=== PATIENT | male | born 1950 | race Hispanic/Latino ===

== ENCOUNTER 2018-12-19 11:53 | Emergency (ER) | payer MEDICARE, OTHER ==
[~2018-12-19] VITALS: Ht 162.6 cm; Wt 86.2 kg
[2018-12-19] MEDS ORDERED: TETANUS/DIPHTHERIA TOX ADULT 0.5 ML SYR ONE (12:26)
--- NOTE | 2018-12-19 12:28 | NUR ---
RIGHT FOREARM REDNESS MARKED WITH BLACK MARKER PER NAN Jacobs
[2018-12-19] MEDS ORDERED: LIDOCAINE HCL 1% LOCAL INJ 20 ML VIAL INJ ONE (12:30)
[2018-12-19] MEDS ORDERED: TETANUS/DIPHTHERIA TOX ADULT 0.5 ML SYR IM ONE (12:30)
== END 2018-12-19 12:42 | disposition home or self-care (01) ==
LOC: ER 11:53
DX: L02.413 Cutaneous abscess of right upper limb (principal)
CPT/HCPCS: 10060; 90471; 90714; 99283

== ENCOUNTER 2019-06-13 21:16 | Inpatient (IN) | payer MEDICARE, OTHER ==
[~2019-06-13] VITALS: Ht 162.6 cm; Wt 86.2 kg
--- OUTSIDE RECORDS SUMMARY | 2019-06-13 21:19 | XMS REPORT ---
Author Author [facility] Organization [facility] Address Unknown Phone Unavailable Care Team Providers Care Management Sme Name Role Phone NO, PCP PP Unavailable Payers Payer Name Policy Type Policy Number Effective Date Expiration D ate [employer] [facility] [id number] Problems This patient has no known problems. Allergies, Adverse Reactions, Alerts This patient has no known allergies or adverse reactions. Medications This patient has no known medications. Encounters Start Date/Time End Date/Time Encounter Type Admission Type [facility] Care Department Encounter ID 2018-12-19 11:53:00 2018-12-19 12:42:00 Departed Emergency Room [facility] [id number]
[2019-06-13] MEDS ORDERED: ACETAMINOPHEN 325 MG TAB PO ONE (21:45)
[2019-06-13] MEDS ORDERED: CEFEPIME 2 GM/NS 0.9% 100 ML 100 ML IV SCH (21:45)
[2019-06-13] MEDS ORDERED: SODIUM CHLORIDE 0.9% 1000ML 1,000 ML IV ONE ×2 (22:00→23:30)
[2019-06-13 22:03] LABS: BASOPHILS % 0.4 % (0.0-1.0); EOSINOPHILS % 0.2 % (0.0-6.0); HEMATOCRIT 43.9 % (38.2-49.6); HEMOGLOBIN 15.4 g/dL (14.0-18.0); LYMPHOCYTES # (AUTO) 0.7 (1.0-3.2); LYMPHOCYTES % 7.4 % (18.0-39.1); MEAN CORPUSCULAR HEMOGLOBIN 29.2 pg (28-32); MEAN CORPUSCULAR HGB CONC 35.1 g/dL (31-35); MEAN CORPUSCULAR VOLUME 83.3 fL (81-99); MONOCYTES # (AUTO) 0.4 (0.2-0.8); MONOCYTES % 4.3 % (4.4-11.3); NEUTROPHILS # (AUTO) 8.7 (2.1-6.9); NEUTROPHILS % 86.8 % (38.7-80.0); PLATELET COUNT 85 x10e3/uL (140-360); RED BLOOD COUNT 5.27 x10e6/uL (4.3-5.7); RED CELL DISTRIBUTION WIDTH 12.4 % (11.7-14.4)
[2019-06-13 22:05] LABS: CLARITY,URINE SL CLOUDY (CLEAR); COLOR,URINE STRAW (YELLOW)
[2019-06-13 22:06] LABS: BILIRUBIN,URINE SMALL (NEGATIVE); KETONES,URINE TRACE (NEGATIVE); LEUKOCYTE ESTERASE ,URINE NEGATIVE (NEGATIVE); NITRITE,URINE NEGATIVE (NEGATIVE); PROTEIN,URINE DIPSTICK >=300 (NEGATIVE); URINE UROBILINOGEN 0.2 mg/dL (0.2 - 1)
[2019-06-13 22:10] LABS: INR 1.12; PARTIAL THROMBOPLASTIN TIME 31.6 seconds (23.8-35.5); PROTHROMBIN TIME 15.1 seconds (11.9-14.5)
[2019-06-13 22:18] LABS: BACTERIA,URINE MODERATE /HPF; EPITHELIAL CELLS,URINE FEW /LPF
[2019-06-13 22:21] LABS: ALANINE AMINOTRANSFERASE 53 IU/L (0-55); ALBUMIN/GLOBULIN RATIO 0.7 (0.8-2.0); ALKALINE PHOSPHATASE 128 IU/L (40-150); ANION GAP 14.6 mmol/L (8-16); BLOOD UREA NITROGEN 20 mg/dL (7-26); BUN/CREATININE RATIO 20 (6-25); CALCIUM 9.3 mg/dL (8.4-10.2); CARBON DIOXIDE 24 mmol/L (22-29); CHLORIDE 91 mmol/L (98-107); CREATINE KINASE 163 IU/L (30-200); CREATININE, SERUM 0.98 mg/dL (0.72-1.25); EST GLOMERULAR FILTRATION RATE > 60 ML/MIN (60-); GLUCOSE 133 mg/dL (74-118); POTASSIUM 3.6 mmol/L (3.5-5.1); SODIUM 126 mmol/L (136-145)
[2019-06-13 22:54] LABS: AMYLASE 64 U/L (25-125); LIPASE 34 U/L (8-78)
[2019-06-14] VITALS (10 sets, daily range): BP systolic 100–119; BP diastolic 64–74
--- NOTE | 2019-06-14 | Diagnostic Imaging Report ---
EXAM: CT Abdomen and Pelvis WITH contrast INDICATION: Right upper quadrant pain, fever COMPARISON: None. TECHNIQUE: Abdomen and pelvis were scanned utilizing a multidetector helical scanner from the lung base to the pubic symphysis after administration of IV contrast. Coronal and sagittal reformations were obtained. Routine protocol was performed. Scan was performed when during portal venous phase. IV CONTRAST: 100 mL of Isovue 370 ORAL CONTRAST: None COMPLICATIONS: None RADIATION DOSE: Total DLP: 395 ... mGy*cm Estimated effective dose: (DLP x 0.015 x size factor) mSv CTDIvol has been reviewed. It is below the limits set by the Radiation Protocol Committee (RPC). Dose modulation, iterative reconstruction, and/or weight based adjustment of the mA/kV was utilized to reduce the radiation dose to as low as reasonably achievable. FINDINGS: LINES and TUBES: None. LOWER THORAX: Coronary artery calcifications. Unremarkable HEPATOBILIARY: No focal hepatic lesions. No biliary ductal dilation. GALLBLADDER: No radio-opaque stones or sludge. No wall thickening. SPLEEN: No splenomegaly. PANCREAS: A 1 cm round hypodensity within the tail of the pancreas (series 2 image 21). ADRENALS: No adrenal nodules KIDNEYS/URETERS: Kidneys enhance symmetrically. No hydronephrosis. No cystic or solid mass lesions. No stones. GI TRACT: No abnormal distention, wall thickening, or evidence of bowel obstruction. Small sliding hiatal hernia. Dense stool in the colon and rectum. A few colonic diverticuli without diverticulitis. Appendix is normal. PELVIC ORGANS/BLADDER: The urinary bladder is underdistended and demonstrates mild circumferential urinary bladder wall thickening and trace perivesicular fat stranding. Mild prostatomegaly. LYMPH NODES: No lymphadenopathy. VESSELS: Minimal arterial calcifications. PERITONEUM / RETROPERITONEUM: No free air or fluid. BONES: There are degenerative changes in the spine. SOFT TISSUES: Unremarkable. IMPRESSION: 1. Subtle findings which can be seen with urinary bladder cystitis. 2. Dense stool in the colon and rectum can be due to constipation or due to hyperdense ingested material. 3. 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 Recommend nonemergent contrast enhanced pancreas MRI with MRCP for further evaluation. 4. Small sliding gastric lavinia hernia. 5. Calcific coronary artery disease. Signed by: Willam Myles DO on 06/13/2019 11:57 PM
--- NOTE | 2019-06-14 00:04 | Diagnostic Imaging Report ---
EXAMINATION: CHEST SINGLE (PORTABLE) INDICATION: Fever COMPARISON: None FINDINGS: TUBES and LINES: None. LUNGS: Normal lung volumes. Lungs are clear. No consolidations. PLEURA: No pleural effusion or pneumothorax. HEART AND MEDIASTINUM: The cardiomediastinal silhouette is unremarkable. BONES AND SOFT TISSUES: No acute osseous lesion. Soft tissues are unremarkable. UPPER ABDOMEN: No free air under the diaphragm. IMPRESSION: No acute thoracic radiographic abnormality. Signed by: Willam Myles DO on 06/14/2019 12:00 AM
[2019-06-14] MEDS ORDERED: ONDANSETRON HCL INJ 2MG/ML 2ML 2 MG/ML VIAL IV PRN (00:15)
[2019-06-14] MEDS: METRONIDAZOLE 500MG/NS 100ML 100 ML IV SCH ×5 (00:35→23:57)
--- NOTE | 2019-06-14 01:25 | NUR ---
PATIENT ARRIVED VIA STRETCHER. RECEIVED REPORT FROM LIZZY VANESSA NURSE. PATIENT IS A&OX3 AND AMBULATES. CALL LIGHT WITHIN REACH.
[2019-06-14] MEDS: SODIUM CHLORIDE 0.9% 1000ML 1,000 ML IV SCH ×5 (01:55→15:49)
[2019-06-14] MEDS ORDERED: CEFEPIME 2 GM/NS 0.9% 100 ML 100 ML IV SCH (06:00)
--- NOTE | 2019-06-14 07:03 | NUR ---
GAVE BEDSIDE SHIFT REPORT TO ONCOMING NURSE. CALL LIGHT WITHIN REACH. PATIENT IN BED.
[2019-06-14] MEDS: CEFEPIME 2 GM/NS 0.9% 100 ML 100 ML IV SCH ×3 (09:22→21:09)
[2019-06-14] MEDS: ACETAMINOPHEN 325 MG TAB PO PRN ×2 (11:11→20:20)
--- NOTE | 2019-06-14 11:20 | NUR ---
ASSESSMENT: Spiritual distress [employer] responded to a Spiritual Care consult request. Pt "worried" about 's health and pandemic. Pt states his has chronic illnesses and he is worried about her rhona COVID-19. Pt also worries about how long things will "return to normal." Intervention: Provided hospitality and unhurried empathic listening. Facilitated identification of emotions. Provided prayer and information on how to reach vp marketing services and skin, if needed. Outcome: Pt expressed appreciation for visit. Will follow as able. KAN SCHAFER [employer] Spiritual Care Department O: [phone]
--- NOTE | 2019-06-14 13:03 | NUR ---
H&P cc: abdominal pain HPI: 68yoM, PCP , developed periumbilical abdominal pain with mild diarrhea, found to have UTI and sepsis. Also dehydrated with hyponatremia. PMH: constipation, obesity PSHx: none ALlergies; see emr FH/SH; ; no cigs; occ etoh med;see MAR ROS; no cp/sob/skin rash/dizziness/vision changes/N/V/fever/c/s. vs revd PE tired appearing anicteric ns1s2 mod bs soft nd; mild tenderness in periumbilical area no leg edema skin dry flat affect a&ox3; labs/meds revd A/P: Sepsis due to UTI- cefepime UTI- cefepime; f/u cx Pancreatitic tail lesion- check MRCP Acute gastroenteritis- use flagyl HYponatremia- rehydrate Thrombocytopenia- due to sepsis? Constipation- add bowel reg Obesity- screen for DM BMI 32.6- as above Prop: scd; ppi DIspo: f/u closely Jeremi Gandhi MD, PhD.
[2019-06-14 15:23] LABS: CHOL/HDL RATIO 20.2 (3.9-4.7)
[2019-06-14] MEDS: PANTOPRAZOLE SOD 40 MG TABEC PO SCH (15:52)
[2019-06-14] MEDS: DOCUSATE SODIUM 100 MG CAP PO SCH (15:52)
[2019-06-14] MEDS: SENNOSIDES 8.6 MG TAB PO SCH ×2 (15:52→20:20)
--- NOTE | 2019-06-14 19:06 | NUR ---
RECEIVED BEDSIDE SHIFT REPORT FROM PREVIOUS NURSE. CALL LIGHT WITHIN REACH. PATIENT IN BED
[2019-06-15] VITALS (7 sets, daily range): BP systolic 102–113; BP diastolic 56–79
[2019-06-15] MEDS: CEFEPIME 2 GM/NS 0.9% 100 ML 100 ML IV SCH ×3 (05:21→22:30)
--- NOTE | 2019-06-15 05:25 | NUR ---
IM- progress note O/N see MAR ROS; no cp/sob/skin rash/dizziness/vision changes/N/V/fever/c/s. vs revd PE tired appearing anicteric ns1s2 mod bs soft nd; mild tenderness in periumbilical area no leg edema skin dry flat affect a&ox3; labs/meds revd A/P: Sepsis due to UTI- cefepime UTI- cefepime; f/u cx Pancreatitic tail lesion- check MRCP Acute gastroenteritis- use flagyl HYponatremia- rehydrate Thrombocytopenia- due to sepsis? Constipation- add bowel reg Obesity- screen for DM BMI 32.6- as above Prop: scd; ppi DIspo: f/u closely 06/15/19 continue antibiotics; f/u labs; Hba1c/LDL 6.; PReDM; HTG- TG is 313, start fenofibrate; Jeremi Gandhi MD, PhD.
[2019-06-15] MEDS: METRONIDAZOLE 500MG/NS 100ML 100 ML IV SCH ×3 (06:25→18:05)
[2019-06-15 06:27] LABS: BASOPHILS % 0.5 % (0.0-1.0); EOSINOPHILS % 0.1 % (0.0-6.0); HEMATOCRIT 37.7 % (38.2-49.6); HEMOGLOBIN 13.1 g/dL (14.0-18.0); LYMPHOCYTES # (AUTO) 0.5 (1.0-3.2); LYMPHOCYTES % 5.9 % (18.0-39.1); MEAN CORPUSCULAR HEMOGLOBIN 29.6 pg (28-32); MEAN CORPUSCULAR HGB CONC 34.7 g/dL (31-35); MEAN CORPUSCULAR VOLUME 85.3 fL (81-99); MONOCYTES # (AUTO) 0.3 (0.2-0.8); MONOCYTES % 3.4 % (4.4-11.3); NEUTROPHILS # (AUTO) 7.4 (2.1-6.9); NEUTROPHILS % 89.3 % (38.7-80.0); PLATELET COUNT 88 x10e3/uL (140-360); RED BLOOD COUNT 4.42 x10e6/uL (4.3-5.7); RED CELL DISTRIBUTION WIDTH 13.2 % (11.7-14.4)
[2019-06-15 06:57] LABS: ALANINE AMINOTRANSFERASE 33 IU/L (0-55); ALBUMIN 2.2 g/dL (3.5-5.0); ALBUMIN/GLOBULIN RATIO 0.6 (0.8-2.0); ALKALINE PHOSPHATASE 97 IU/L (40-150); ANION GAP 14.5 mmol/L (8-16); BLOOD UREA NITROGEN 15 mg/dL (7-26); BUN/CREATININE RATIO 19 (6-25); CALCIUM 7.8 mg/dL (8.4-10.2); CARBON DIOXIDE 22 mmol/L (22-29); CHLORIDE 100 mmol/L (98-107); CREATININE, SERUM 0.78 mg/dL (0.72-1.25); EST GLOMERULAR FILTRATION RATE > 60 ML/MIN (60-); GLUCOSE 104 mg/dL (74-118); POTASSIUM 3.5 mmol/L (3.5-5.1); SODIUM 133 mmol/L (136-145)
--- NOTE | 2019-06-15 07:20 | NUR ---
PATIENT IN BED RESTING WITH NO S/S OF DISCOMFORT. IV FLUI INFUSING ORDERED. BED IN LOWER POSITION, CALL LIGHT AT REACH.
--- NOTE | 2019-06-15 07:21 | NUR ---
GAVE BEDSIDE SHIFT REPORT TO ONCOMING NURSE. PATIENT IN BED. CALL LIGHT WITHIN REACH.
[2019-06-15] MEDS: PANTOPRAZOLE SOD 40 MG TABEC PO SCH (09:10)
[2019-06-15] MEDS: SENNOSIDES 8.6 MG TAB PO SCH ×2 (09:10→20:00)
[2019-06-15] MEDS: FENOFIBRATE 145 MG TAB PO SCH (09:10)
[2019-06-15] MEDS: DOCUSATE SODIUM 100 MG CAP PO SCH ×2 (09:10→17:00)
[2019-06-15 10:22] LABS: PLATELET ESTIMATE MODERATELY DECREASED; PLATELET MORPHOLOGY COMMENT NORMAL; RBC MORPHOLOGY COMMENT NORMAL
--- NOTE | 2019-06-15 11:24 | NUR ---
PATIENT REQUESTED AND RECEIVED SOME JELLO. IN BED WATCHING TV. CALL LIGHT AT REACH.
[2019-06-15] MEDS: SODIUM CHLORIDE 0.9% 1000ML 1,000 ML IV SCH ×2 (12:07→22:30)
[2019-06-15] MEDS ORDERED: ONDANSETRON HCL 4 MG ORAL DISINTEGRATING TAB PO PRN (13:00)
--- NOTE | 2019-06-15 15:42 | NUR ---
WALKING ROUND MADE, PATIENT IN BED RESTING WITH EYES CLOSED, NO DISTRESS NOTED. BED IN LOWER POSITION, CALL LIGHT AT REACH.
--- NOTE | 2019-06-15 17:49 | NUR ---
PATIENT NOTED WITH URINE ON HIS PANT. WHEN ASKED, PATIENT STATED THAT HE HAD A LITTLE ACCIDENT. WHEN OFFERED TO HELP HIM CHANGE, PATIENT REFUSED STATING THAT HIS FAMILY WILL BRING HIM SOME CLEAN CLOTHES FROM HOME AND HE WILL CHANGE, HE DOES NOT NEED HELP. IN BED WITH CALL LIGHT AT REACH.
--- NOTE | 2019-06-15 19:00 | NUR ---
Patient visited in room during nursing rounds. Patient alert and oriented x3. No distress or discomfort noted. Pt on IVF (NS at 60ml/hr) and scheduled IV antibiotic treatment. Call coburn within reach. Will monitor closely.
[2019-06-15] MEDS: ACETAMINOPHEN 325 MG TAB PO PRN (20:17)
[2019-06-16] VITALS (7 sets, daily range): BP systolic 105–129; BP diastolic 66–79
[2019-06-16] MEDS: METRONIDAZOLE 500MG/NS 100ML 100 ML IV SCH ×2 (00:48→06:53)
[2019-06-16] MEDS: ACETAMINOPHEN 325 MG TAB PO PRN ×2 (05:43→18:10)
[2019-06-16] MEDS: CEFEPIME 2 GM/NS 0.9% 100 ML 100 ML IV SCH (05:43)
--- NOTE | 2019-06-16 06:22 | NUR ---
IM- progress note O/N see MAR ROS; no cp/sob/skin rash/dizziness/vision changes/N/V/fever/c/s. vs revd PE tired appearing anicteric ns1s2 mod bs soft nd; mild tenderness in periumbilical area no leg edema skin dry flat affect a&ox3; labs/meds revd A/P: Sepsis due to UTI- cefepime UTI- cefepime; f/u cx Pancreatitic tail lesion- check MRCP Acute gastroenteritis- use flagyl HYponatremia- rehydrate Thrombocytopenia- due to sepsis? Constipation- add bowel reg Obesity- screen for DM BMI 32.6- as above Prop: scd; ppi DIspo: f/u closely 06/15/19 continue antibiotics; f/u labs; Hba1c/LDL 6.; PReDM; HTG- TG is 313, start fenofibrate; 5-7 some fever overnight; MRCP. Jeremi Gandhi MD, PhD.
--- NOTE | 2019-06-16 07:21 | NUR ---
PATIENT SITTING UP IN BED TALKING ON THE PHONE, NO DISTRESS NOTED. BED IN LOWER POSITION, CALL LIGHT AT REACH.
[2019-06-16] MEDS: SENNOSIDES 8.6 MG TAB PO SCH ×2 (09:30→20:25)
[2019-06-16] MEDS: FENOFIBRATE 145 MG TAB PO SCH (09:30)
[2019-06-16] MEDS: PANTOPRAZOLE SOD 40 MG TABEC PO SCH (09:30)
[2019-06-16] MEDS: DOCUSATE SODIUM 100 MG CAP PO SCH ×2 (09:30→17:27)
[2019-06-16] MEDS ORDERED: GADOBENATE DIMEGLUMINE 1 ML IV ONE (09:41)
--- NOTE | 2019-06-16 10:28 | NUR ---
PATIENT OFF UNIT TO RADIOLOGY.
--- NOTE | 2019-06-16 11:22 | NUR ---
PATIENT BACK TO UNIT FROM RADIOLOGY.
[2019-06-16] MEDS: CEFEPIME 1GM/NS 0.9% 50 ML 50 ML IV SCH ×2 (14:00→21:31)
--- NOTE | 2019-06-16 15:57 | NUR ---
PATIENT REQUESTED AND RECEIVED A CUP OF ICE. SITTING AT BED SIDE WITH CALL LIGHT AT REACH.
--- NOTE | 2019-06-16 16:15 | Consultation ---
DATE OF CONSULTATION: 06/16/2019 INFECTIOUS DISEASE CONSULT REASON FOR CONSULTATION: Sepsis. Thank you, Dr. Gandhi for asking me to see this patient. HISTORY OF PRESENT ILLNESS: The patient is a 68-year-old man, who was referred for sepsis. He presented to the Emergency Department with complaints of malaise, described as "feeling bad" and no other symptoms for few days. Prior to that he was quarantining at home with the , who has no symptoms. He denies recent sick contact, animal exposure, and tick or flea bite. Also, no recent travel. The SARS-CoV2 virus PCR test was negative. PAST MEDICAL HISTORY: None. PAST SURGICAL HISTORY: None. ALLERGIES: NO KNOWN DRUG ALLERGIES. MEDICATIONS: See MAR. The current antibiotics are cefepime 2g IV piggyback q.8 hours, metronidazole 500 mg IV piggyback q.6 hours. FAMILY HISTORY: Diabetes mellitus: Sister. SOCIAL HISTORY: No alcohol or tobacco use. REVIEW OF SYSTEMS: CONSTITUTIONAL: The patient still complains of intermittent fever, generalized weakness and malaise. DERMATOLOGIC: No rash. HEAD, EYES, EARS, NOSE, AND THROAT: No headache, visual disturbance, earache, nosebleed, or sore throat. RESPIRATORY: No cough or shortness of breath. CARDIOVASCULAR: No chest pain or palpitations. GASTROINTESTINAL: No nausea, vomiting, diarrhea or abdominal pain. UROLOGY: No dysuria or hematuria. MUSCULOSKELETAL: No joint pain or swelling. ENDOCRINE: No polyuria or polydipsia. Also, no heat or cold intolerance. NEUROLOGIC: No headache. PHYSICAL EXAMINATION: GENERAL: No acute distress. VITAL SIGNS: T-max 100.6, pulse rate 84, respiratory rate 19, blood pressure 105/66, weight 190 pounds. HEENT: Normocephalic, atraumatic. There is no icterus or injection of conjunctiva. There is no ear or nasal discharge. There is moist oral mucosa. There is no pharyngeal erythema or exudate. NECK: Supple. No meningismus or JVD. LUNGS: Clear to auscultation bilaterally. HEART: Normal S1, S2. Regular. ABDOMEN: Protuberant, but soft and nontender. EXTREMITIES: There is no edema, clubbing, or cyanosis. SKIN: There is no acute erythema. MANAGER CREATIVE: Awake, alert, and oriented to person, place, and time. Nonfocal. LABORATORY AND DIAGNOSTICS: 06/15/2019 WBC 8310, hemoglobin 13.1, hematocrit 37.7, platelet 88,000, neutrophils 89.3, lymphocytes 5.9, monocytes 3.4, eosinophils 0.1, and basophils 0.5. BUN 15, creatinine 0.7. Coronavirus PCR not detected. Blood culture showed no growth. Urine culture showed mixed isaías contamination. Chest x-ray showed no acute thoracic radiographic abnormality. CT scan of the abdomen and pelvis showed an indeterminate 1 cm hypodensity within the tail of the pancreas, possibly an intraductal papillary mucinous neoplasm- pancreatic MRI with MRCP was recommended. IMPRESSION: 1. Fever of unknown origin. 2. Thrombocytopenia. PLAN: Check echocardiogram and MRI of the pancreas with MRCP. MD LES Newton/[facility] /[id number] MTDNirmala
--- NOTE | 2019-06-16 19:08 | NUR ---
BED SIDE SHIFT REPORT GIVEN TO ON COMING .PATIENT IN BED RESTING WITH NO S/S OF DISTRESS.
--- NOTE | 2019-06-16 19:10 | NUR ---
Patient visited in room during nursing rounds. Patient alert and oriented x3. Ambulatory in room prn. On IVF (NS at 60ml/hr) and scheduled IV antibiotic treatment. Pt states he feels fine at this time. Pt received some items (i.e. personal pillow and food) from his daughter. Call coburn within reach. Will monitor closely.
[2019-06-16] MEDS: SODIUM CHLORIDE 0.9% 1000ML 1,000 ML IV SCH (20:20)
[2019-06-17] VITALS (8 sets, daily range): BP systolic 116–140; BP diastolic 73–82
[2019-06-17] MEDS: CEFEPIME 1GM/NS 0.9% 50 ML 50 ML IV SCH ×3 (05:30→22:17)
[2019-06-17] MEDS: SODIUM CHLORIDE 0.9% 1000ML 1,000 ML IV SCH (07:40)
--- NOTE | 2019-06-17 08:40 | NUR ---
IM- progress note O/N see MAR ROS; no cp/sob/skin rash/dizziness/vision changes/N/V/fever/c/s. vs revd PE tired appearing anicteric ns1s2 mod bs soft nd; mild tenderness in periumbilical area no leg edema skin dry flat affect a&ox3; labs/meds revd A/P: Sepsis due to UTI- cefepime UTI- cefepime; f/u cx Pancreatitic tail lesion- check MRCP Acute gastroenteritis- use flagyl HYponatremia- rehydrate Thrombocytopenia- due to sepsis? Constipation- add bowel reg Obesity- screen for DM BMI 32.6- as above Prop: scd; ppi DIspo: f/u closely 06/15/19 continue antibiotics; f/u labs; Hba1c/LDL 6.; PReDM; HTG- TG is 313, start fenofibrate; 5-7 some fever overnight; MRCP. 5-8 no events Jeremi Gandhi MD, PhD.
[2019-06-17] MEDS: FENOFIBRATE 145 MG TAB PO SCH (08:53)
[2019-06-17] MEDS: PANTOPRAZOLE SOD 40 MG TABEC PO SCH (08:53)
[2019-06-17] MEDS: SENNOSIDES 8.6 MG TAB PO SCH ×2 (08:53→21:19)
[2019-06-17] MEDS: DOCUSATE SODIUM 100 MG CAP PO SCH ×2 (08:53→16:51)
--- NOTE | 2019-06-17 09:07 | Diagnostic Imaging Report ---
TECHNIQUE: MRI of the abdomen and MRCP WITHOUT and WITH intravenous contrast. 3-D volume reconstructions were obtained to evaluate the biliary ductal system. INDICATION: ^1 cm hypodensity tail of pancreas on CT abdomen. COMPARISON: CT from 06/13/2019. FINDINGS: Evaluation is suboptimal due to respiratory motion artifact. LOWER THORAX: Unremarkable. LIVER: No hepatic signal abnormality. No focal hepatic lesions. BILIARY: Gallbladder is unremarkable. No biliary ductal dilatation or filling defect. SPLEEN: No splenomegaly. PANCREAS: A lesion in the pancreatic is hyperintense on T2-weighted imaging and measures 1.2 cm. This is most likely a small, side branch intraductal pattern mucinous neoplasm. An additional cystic lesion in the pancreatic body measures 0.6 cm on axial T2-weighted image 19. An additional cyst in the pancreatic body measures 0.7 cm on coronal MRCP image 22. There is a single series were a portion of the pancreas appears mild with narrowing of the duct. This ductal narrowing is not corroborated on MRCP images and is likely artifactual as seen on series 9 image 24. ADRENALS: No adrenal nodules. KIDNEYS/URETERS: No hydronephrosis or solid mass lesions. PERITONEUM/RETROPERITONEUM: No free fluid. LYMPH NODES: No lymphadenopathy. VESSELS: Unremarkable. GI TRACT: No distention or wall thickening. BONES AND SOFT TISSUES: There is extensive edema in the retroperitoneum, along the fascia of the paraspinal musculature, and along the fascia of the psoas musculature. IMPRESSION: 1. Cystic lesions in the pancreas measure up to 1.2 cm in the tail. 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 No nodular focus to suggest malignant transformation. This can be followed up as the same item below. 2. There is a questionable area of pancreatic bulkiness with ductal narrowing on a single sequence. This is not corroborated on other sequences or the MRCP and is most likely artifactual. However, a follow-up CT or MRCP is recommended in one month to document stability. 3. The edema along the fascia of the paraspinal and psoas musculature is from an indeterminate cause. Signed by: Huseyin Estrada JR, MD on 06/17/2019 9:03 AM
--- NOTE | 2019-06-17 19:10 | NUR ---
atblack visited in room during nursing rounds. Patient alert and oriented x3. Ambulatory in room prn. On IVF (NS at 60ml/hr) and scheduled IV antibiotic treatment. Pt states he feels fine at this time. Pt received food from his daughter. Call coburn within reach. Will monitor closely.
[2019-06-18] VITALS (7 sets, daily range): BP systolic 123–140; BP diastolic 68–83
[2019-06-18] MEDS: SODIUM CHLORIDE 0.9% 1000ML 1,000 ML IV SCH ×3 (02:35→21:30)
[2019-06-18] MEDS: CEFEPIME 1GM/NS 0.9% 50 ML 50 ML IV SCH ×3 (05:35→21:30)
[2019-06-18] MEDS: SENNOSIDES 8.6 MG TAB PO SCH ×2 (08:27→21:30)
[2019-06-18] MEDS: FENOFIBRATE 145 MG TAB PO SCH (08:33)
[2019-06-18] MEDS: DOCUSATE SODIUM 100 MG CAP PO SCH ×2 (08:33→16:28)
[2019-06-18] MEDS: PANTOPRAZOLE SOD 40 MG TABEC PO SCH (08:33)
--- NOTE | 2019-06-18 11:37 | NUR ---
IM- progress note O/N see MAR ROS; no cp/sob/skin rash/dizziness/vision changes/N/V/fever/c/s. vs revd PE tired appearing anicteric ns1s2 mod bs soft nd; mild tenderness in periumbilical area no leg edema skin dry flat affect a&ox3; labs/meds revd A/P: Sepsis due to UTI- cefepime UTI- cefepime; f/u cx Pancreatitic tail lesion- check MRCP Acute gastroenteritis- use flagyl HYponatremia- rehydrate Thrombocytopenia- due to sepsis? Constipation- add bowel reg Obesity- screen for DM BMI 32.6- as above Prop: scd; ppi DIspo: f/u closely 06/15/19 continue antibiotics; f/u labs; Hba1c/LDL 6.133; PReDM; HTG- TG is 313, start fenofibrate; 5-7 some fever overnight; MRCP. 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 may benefit from EUS with bx at some point; check labs; d/c planning; Jeremi Gandhi MD, PhD.
[2019-06-19] VITALS (7 sets, daily range): BP systolic 132–153; BP diastolic 71–86
--- NOTE | 2019-06-19 05:34 | NUR ---
IM- progress note O/N see MAR ROS; no cp/sob/skin rash/dizziness/vision changes/N/V/fever/c/s. vs revd PE tired appearing anicteric ns1s2 mod bs soft nd; mild tenderness in periumbilical area no leg edema skin dry flat affect a&ox3; labs/meds revd A/P: Sepsis due to UTI- cefepime UTI- cefepime; f/u cx Pancreatitic tail lesion- check MRCP Acute gastroenteritis- use flagyl HYponatremia- rehydrate Thrombocytopenia- due to sepsis? Constipation- add bowel reg Obesity- screen for DM BMI 32.6- as above Prop: scd; ppi DIspo: f/u closely 06/15/19 continue antibiotics; f/u labs; Hba1c/LDL 6.33; PReDM; HTG- TG is 313, start fenofibrate; 5-7 some fever overnight; MRCP. 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 may benefit from EUS with bx at some point; check labs; d/c planning; 5-10 check labs; f/u GI; Replace K; CUCA- on fluids; monitor; Jeremi Gandhi MD, PhD.
[2019-06-19] MEDS: CEFEPIME 1GM/NS 0.9% 50 ML 50 ML IV SCH ×3 (05:39→22:46)
[2019-06-19 06:38] LABS: BASOPHILS % 0.4 % (0.0-1.0); EOSINOPHILS % 0.2 % (0.0-6.0); HEMATOCRIT 38.1 % (38.2-49.6); HEMOGLOBIN 12.7 g/dL (14.0-18.0); LYMPHOCYTES # (AUTO) 1.6 (1.0-3.2); LYMPHOCYTES % 19.6 % (18.0-39.1); MEAN CORPUSCULAR HEMOGLOBIN 28.6 pg (28-32); MEAN CORPUSCULAR HGB CONC 33.3 g/dL (31-35); MEAN CORPUSCULAR VOLUME 85.8 fL (81-99); MONOCYTES # (AUTO) 0.5 (0.2-0.8); MONOCYTES % 5.7 % (4.4-11.3); NEUTROPHILS # (AUTO) 5.9 (2.1-6.9); NEUTROPHILS % 73.2 % (38.7-80.0); PLATELET COUNT 201 x10e3/uL (140-360); RED BLOOD COUNT 4.44 x10e6/uL (4.3-5.7); RED CELL DISTRIBUTION WIDTH 14.9 % (11.7-14.4)
[2019-06-19 07:06] LABS: ANION GAP 12.2 mmol/L (8-16); CALCIUM 7.6 mg/dL (8.4-10.2); CREATININE, SERUM 1.45 mg/dL (0.72-1.25); POTASSIUM 3.2 mmol/L (3.5-5.1)
--- NOTE | 2019-06-19 07:07 | NUR ---
BEDSIDE SHIFT REPORT RECEIVED FROM PM NURSE. PT AWAKE, ALERT, ORIENTED, SITTING UP IN BED, NO SIGNS OF DISTRESS.
[2019-06-19 07:24] LABS: MAGNESIUM 3.1 MG/DL (1.3-2.1); PHOSPHORUS 3.3 MG/DL (2.3-4.7)
--- NOTE | 2019-06-19 09:29 | NUR ---
PAGED DR. ZARATE (GI CONSULT) AND RECEIVED CALLBACK FROM DR. DAVIS. HE STATES HE REVIEWED PT'S IMAGING AND STATES PT DOES NOT HAVE A MASS ON PANCREAS, ONLY CYST WAS FOUND. STATES THIS CAN INFORMATION CAN BE SHARED WITH PT AND FAMILY AND HE WILL SEE PT LATER ON TODAY. STATES PT WILL NEED TO F/U OUTPATIENT THIS WILL NOT BE TREATED DURING THIS HOSPITAL STAY.
[2019-06-19] MEDS: DOCUSATE SODIUM 100 MG CAP PO SCH ×2 (09:44→15:47)
[2019-06-19] MEDS: SENNOSIDES 8.6 MG TAB PO SCH ×2 (09:45→20:29)
[2019-06-19] MEDS: PANTOPRAZOLE SOD 40 MG TABEC PO SCH (09:45)
[2019-06-19] MEDS: FENOFIBRATE 145 MG TAB PO SCH (09:45)
[2019-06-19] MEDS ORDERED: POTASSIUM CHLORIDE 20 MEQ TAB CR PO ONE (15:30)
--- NOTE | 2019-06-19 19:11 | NUR ---
GI CONSULT NOTE RFC: Pancreatic lesion HPI: 68 yo patient with evidence of pneumonia who was incidentally found to have a small cystic lesion in the pancreas. The patient denies active symptoms. He is feeling well, and denies weight loss or diarrhea. No family history of pancreatic ca. PAST MEDICAL HISTORY: None. PAST SURGICAL HISTORY: None. ALLERGIES: NO KNOWN DRUG ALLERGIES. MEDICATIONS: See MAR. The current antibiotics are cefepime 2g IV piggyback q.8 hours, metronidazole 500 mg IV piggyback q.6 hours. FAMILY HISTORY: Diabetes mellitus: Sister. SOCIAL HISTORY: No alcohol or tobacco use. REVIEW OF SYSTEMS: CONSTITUTIONAL: The patient still complains of intermittent fever, generalized weakness and malaise. DERMATOLOGIC: No rash. HEAD, EYES, EARS, NOSE, AND THROAT: No headache, visual disturbance, earache, nosebleed, or sore throat. RESPIRATORY: No cough or shortness of breath. CARDIOVASCULAR: No chest pain or palpitations. GASTROINTESTINAL: No nausea, vomiting, diarrhea or abdominal pain. UROLOGY: No dysuria or hematuria. MUSCULOSKELETAL: No joint pain or swelling. ENDOCRINE: No polyuria or polydipsia. Also, no heat or cold intolerance. NEUROLOGIC: No headache. PHYSICAL EXAMINATION: GENERAL: No acute distress. VITAL SIGNS: T-max 100.6, pulse rate 84, respiratory rate 19, blood pressure 105/66, weight 190 pounds. HEENT: Normocephalic, atraumatic. There is no icterus or injection of conjunctiva. There is no ear or nasal discharge. There is moist oral mucosa. There is no pharyngeal erythema or exudate. NECK: Supple. No meningismus or JVD. LUNGS: Clear to auscultation bilaterally. HEART: Normal S1, S2. Regular. ABDOMEN: Protuberant, but soft and nontender. EXTREMITIES: There is no edema, clubbing, or cyanosis. SKIN: There is no acute erythema. MANUFACTURING QUALITY MANAGER: Awake, alert, and oriented to person, place, and time. Nonfocal. Labs and Imaging reviewed A/P: 68 yo with sepsis on abxn found to have a incidental pancreatic lesion On review of the imaging the patient was noted to have a benign appearing pancreatic lesion. This will need outpatient evaluation with EUS with possible F NA. This was discussed at length with patient and he is amenable to this. He is anxious for d/c home/.
[2019-06-19] MEDS: SODIUM CHLORIDE 0.9% 1000ML 1,000 ML IV SCH (20:30)
[2019-06-20] VITALS: BP 128/71
[2019-06-20 04:00] VITALS: BP 147/88
[2019-06-20] MEDS: CEFEPIME 1GM/NS 0.9% 50 ML 50 ML IV SCH ×2 (06:03→14:00)
[2019-06-20 07:24] LABS: BASOPHILS % 0.3 % (0.0-1.0); EOSINOPHILS % 0.5 % (0.0-6.0); HEMATOCRIT 35.9 % (38.2-49.6); HEMOGLOBIN 11.6 g/dL (14.0-18.0); LYMPHOCYTES # (AUTO) 1.5 (1.0-3.2); LYMPHOCYTES % 22.8 % (18.0-39.1); MEAN CORPUSCULAR HEMOGLOBIN 28.1 pg (28-32); MEAN CORPUSCULAR HGB CONC 32.3 g/dL (31-35); MEAN CORPUSCULAR VOLUME 86.9 fL (81-99); MONOCYTES # (AUTO) 0.5 (0.2-0.8); MONOCYTES % 8.3 % (4.4-11.3); NEUTROPHILS # (AUTO) 4.4 (2.1-6.9); NEUTROPHILS % 66.9 % (38.7-80.0); PLATELET COUNT 222 x10e3/uL (140-360); RED BLOOD COUNT 4.13 x10e6/uL (4.3-5.7); RED CELL DISTRIBUTION WIDTH 15.2 % (11.7-14.4)
[2019-06-20 07:25] VITALS: BP 137/94
--- NOTE | 2019-06-20 07:25 | NUR ---
PT IN BED RESTING NO DISTRESS NOTED,ANXIOUS TO GO HOME.
[2019-06-20 07:40] LABS: ANION GAP 10.7 mmol/L (8-16); CALCIUM 7.8 mg/dL (8.4-10.2); CREATININE, SERUM 1.46 mg/dL (0.72-1.25); POTASSIUM 3.7 mmol/L (3.5-5.1)
[2019-06-20 07:57] VITALS: BP 137/94
--- NOTE | 2019-06-20 08:30 | NUR ---
SPOKE WITH DR CASSIDY RE; DISCHARGE.
[2019-06-20 08:48] LABS: ANISOCYTOSIS SLIGHT; LYMPHOCYTES % (MANUAL) 14 % (19-48); MONOCYTES % (MANUAL) 7 % (3.4-9.0); NEUTROPHILS % (MANUAL) 76 % (40-74)
[2019-06-20 08:49] LABS: PLATELET ESTIMATE ADEQUATE; PLATELET MORPHOLOGY COMMENT NORMAL; RBC MORPHOLOGY COMMENT NORMAL
[2019-06-20] MEDS: FENOFIBRATE 145 MG TAB PO SCH (09:00)
[2019-06-20] MEDS: DOCUSATE SODIUM 100 MG CAP PO SCH ×2 (09:00→17:31)
[2019-06-20] MEDS: PANTOPRAZOLE SOD 40 MG TABEC PO SCH (09:00)
[2019-06-20] MEDS: SENNOSIDES 8.6 MG TAB PO SCH (09:00)
[2019-06-20] MEDS ORDERED: SODIUM CHLORIDE 0.45% 1,000 ML IV ONE (11:15)
[2019-06-20] MEDS ORDERED: SODIUM CHLORIDE 0.45% 1,000 ML IV SCH (11:30)
[2019-06-20] MEDS ORDERED: SODIUM CHLORIDE 0.9% 1000ML 2,590 ML IV ONE (11:40)
--- NOTE | 2019-06-20 11:53 | NUR ---
SPOKE WITH DR ANGE FIERRO;DISCHARGED PT WILL NOT BE DISCHARGED AT THIS TIME.
[2019-06-20 12:00] VITALS: BP 155/80
[2019-06-20 15:50] VITALS: BP 158/96
--- NOTE | 2019-06-20 16:50 | NUR ---
Nutrition Screen Note RD Recommendation for Physician: -Continue current diet as ordered Plan of Care: RD following, monitoring for tolerance and adequacy Nutrition reason for involvement: Length of stay Primary Diagnose(s): fever, sepsis, UTI PMH: none Ht: 64 in Wt:190 lb BMI: 32.6 kg/m2 IBW:[address] Assessment: (06/20/19) Chart reviewed. Labs and meds reviewed. It is noted that pt has an A1c of 6.1%. Pt is a 68 year old male admitted with fever, sepsis, and UTI. Pt reports he has been eating most of his meals. No weight loss reported and pt was unsure of his usual weight. There are no previous weights in chart. No N/V/D/C or chewing/swallowing issues. Will continue to monitor. Current Diet: 1800 ADA Malnutrition Evaluation (06/20/19) The patient does not meet criteria for a specified degree of malnutrition at this time. Will re-evaluate at follow-up as appropriate. Diet Education Needs Assessment: Pt declined diet education materials Nutrition Care Level: low Signed: Ángela Bolden, RD, LD
--- NOTE | 2019-06-20 17:32 | NUR ---
PT UP IN BED ,DENIES P[AI AWAITING RESULTS FROM BMP
[2019-06-20 17:37] LABS: ANION GAP 13.6 mmol/L (8-16); CALCIUM 7.5 mg/dL (8.4-10.2); CREATININE, SERUM 1.21 mg/dL (0.72-1.25); POTASSIUM 3.6 mmol/L (3.5-5.1)
--- NOTE | 2019-06-20 20:51 | Progress Note ---
DATE: 06/20/2019 SUBJECTIVE: The patient is tolerating oral diet. Denies any abdominal pain. REVIEW OF SYSTEMS: GENERAL: Weakness, otherwise no fever or chills. CVS: No chest pain or palpitations. RESPIRATORY: No cough or expectoration. MEDICATIONS: Docusate 100 mg twice daily, cefepime 1 g IV q.8 hours, fenofibrate 145 mg p.o. daily, Senokot 8.6 mg twice daily, pantoprazole 40 mg p.o. daily, acetaminophen 650 mg p.o. q.4 hours p.r.n., and Zofran 4 very mg p.o. q.4 hours p.r.n. PHYSICAL EXAMINATION: VITAL SIGNS: Temperature 95.9, pulse is 72, respirations 20, blood pressure 158/96, and oxygen saturation 99% on room air. GENERAL: Not in any acute distress. Oral mucosa is moist. ABDOMEN: Soft, nondistended, and nontender. No palpable mass or hernia. Positive bowel sounds. LABORATORY DATA: WBC 6.53, hemoglobin 11.6, hematocrit 35.9, MCV 86.9, and platelet count 222. Sodium 141, potassium of 3.6, chloride 111, bicarb 20, BUN 27, and creatinine 1.21. MRCP showed; 1.2 cm cyst in the pancreatic tail, highly suspicious for side-branch intraductal papillary mucinous neoplasm. There is a questionable area of pancreatic bulkiness with ductal narrowing on a single sequence. IMPRESSION: Incidental pancreatic cyst. Fever of unknown origin. PLAN: Continue present medical management. I have given patient my business card. I will follow him in my office as an outpatient within 1-2 weeks after discharge. The patient will need an upper endoscopic ultrasound for further evaluation of pancreatic cystic lesions. Luis Enrique Terrell MD [place]/[facility] /[id number]
--- NOTE | 2019-06-20 23:00 | NUR ---
SPOKE TO MD CASSIDY CONCERNING PATIENT POSSIBLE NEED FOR MEDS TO BE CALLED IN TO [facility] [phone]. AND PER MD NO MEDS NEED TO BE CALLED IN AT THIS TIME. SPOKE TO THE DAUGHTER ASHIA LEMON [phone] AND LET HER KNOW THAT MD CASSIDY DID NOT NEED TO CALL IN ANY MEDS AT THIS TIME. INSTRUCTED FAMILY MEMBER TO FOLLOW UP WITH MD ACCORDING TO DISCHARGE INSTRUCTIONS. SPOKE WITH NURSE WHO DISCHARGED PATIENT HOME YESTERDAY AND WAS INFORMED THAT I.D. DID NOT WISH TO ORDER ANY DISCHARGE MEDS WELL.
--- NOTE | 2019-06-22 16:24 | NUR ---
D/C summary Principal Dx: Sepsis due to UTI- cefepime UTI- cefepime; f/u cx Pancreatitic tail lesion- check MRCP Acute gastroenteritis- use flagyl HYponatremia- rehydrate Thrombocytopenia- due to sepsis? Constipation- add bowel reg Secondary Dx: Obesity- screen for DM BMI 32.6- as above Prop: scd; ppi DIspo: f/u closely 06/15/19 continue antibiotics; f/u labs; Hba1c/LDL 6.1/33; PReDM; HTG- TG is 313, start fenofibrate; 5-7 some fever overnight; MRCP. 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 may benefit from EUS with bx at some point; check labs; d/c planning; 5- check labs; f/u GI; Replace K; CUCA- on fluids; monitor; 5-11 d/c pt d/c home f/u pcp 1 week and GI 1 week stable d/c>35mins Jeremi Gandhi MD, PhD.
== END 2019-06-20 19:12 | disposition home or self-care (01) | DRG 872 ==
LOC: ER 21:16 → ERHOLD 06-14 00:16 → MED/SURG3 06-14 01:20 → OBSVTOIN 06-15 07:29 → INTOOBSV 06-15 07:29
PROVIDERS: ADMIT Internal Medicine; ATTEND Internal Medicine
DX: A41.9 Sepsis, unspecified organism (principal); N30.01 Acute cystitis with hematuria; K86.2 Cyst of pancreas; E87.1 Hypo-osmolality and hyponatremia; N17.9 Acute kidney failure, unspecified; R65.20 Severe sepsis without septic shock; D69.6 Thrombocytopenia, unspecified; E86.0 Dehydration; K59.00 Constipation, unspecified; E66.9 Obesity, unspecified; D13.6 Benign neoplasm of pancreas; K52.9 Noninfective gastroenteritis and colitis, unspecified; Z83.3 Family history of diabetes mellitus; Z68.32 Body mass index [BMI] 32.0-32.9, adult; Z82.49 Family history of ischemic heart disease and other diseases of the circulatory system
CPT/HCPCS: 36415; 71045; 74177; 74183; 80048; 80053; 80061; 81001; 82044; 82150; 82550; 82553; 82570; 83036; 83605; 83690; 83735; 84100; 84484; 85025; 85610; 85730; 87040; 87086; 87635; 93005; 93306; 96361; 99284; G0378; J0692; J7030